=== PATIENT | female | born 1980 | race Two or more races ===

== ENCOUNTER 2024-02-22 07:32 | Emergency (ER) | payer BC, OTHER ==
[~2024-02-22] VITALS: Ht 154.9 cm; Wt 64.2 kg
[2024-02-22 08:10] VITALS: BP 103/64; PULSE 73; RESP 16; TEMP 98.2; O2SAT 99
[2024-02-22 08:29] LABS: Urine Bacteria None Seen /hpf (None Seen)
[2024-02-22] MEDS: ONDANSETRON ODT 4 MG TAB PO ONE (08:30)
[2024-02-22] MEDS: MECLIZINE HCL 25 MG TAB PO ONE (08:30)
[2024-02-22 08:38] LABS: Basophils # (auto) 0 10 ^3/uL (0-0.2); Basophils % (auto) 0.3 % (0.0-2.0); Eosinophils # (auto) 0 10 ^3/uL (0-0.8); Eosinophils % (auto) 0.6 % (0.0-7.0); Hematocrit 35.7 % (36.0-46.0); Hemoglobin 11.9 g/dL (12.2-16.2); Lymphocytes # (auto) 1.2 10 ^3/uL (0.4-5.4); Lymphocytes % (auto) 18.6 % (10.0-50.0); Mean Corpuscular Hemoglobin 29.5 pg (28.0-32.0); Mean Corpuscular Hgb Conc. 33.2 g/dL (32.0-36.0); Mean Corpuscular Volume 88.8 fL (80.0-100.0); Monocytes # (auto) 0.5 10 ^3/uL (0-1.3); Monocytes % (auto) 7.7 % (0.0-12.0); Neutrophils # (auto) 4.7 10 ^3/uL (1.6-8.6); Neutrophils % (auto) 72.8 % (37.0-80.0); Nucleated Red Blood Cells % 0.1 %; Red Blood Cells 4.03 10^6/uL (4.0-5.20); Red Cell Distribution Width 13.2 % (11.8-14.3); White Blood Cell 6.4 10^3/uL (4.4-10.8)
[2024-02-22 08:44] LABS: Chloride 107 mmol/L (98-107); Potassium 4.4 mmol/L (3.5-5.1); Sodium 138 mmol/L (136-145)
[2024-02-22 08:45] LABS: Anion Gap 7 (5-15); Carbon Dioxide 24 mmol/L (20-30)
[2024-02-22 08:46] LABS: Calcium 9.2 mg/dL (8.5-10.1)
[2024-02-22 08:48] LABS: Urine Blood Negative /uL (Negative); Urine Clarity Clear (Clear); Urine Color Light-Yellow (Yellow); Urine Protein, UAD Negative (Negative); Urine Specific Gravity 1.015 (1.001-1.035); Urine Urobilinogen Normal (Negative); Urine WBC 9 /hpf (0 - 5)
[2024-02-22 08:50] LABS: Glucose 95 mg/dL (74-106)
[2024-02-22 08:51] LABS: BUN/Creatinine Ratio 9.5 (10.0-20.0); Blood Urea Nitrogen 6 mg/dL (9-23)
[2024-02-22] MEDS ORDERED: NITR-87 PO (09:02)
[2024-02-22] MEDS ORDERED: MECL1TAB42 PO (09:02)
== END 2024-02-22 09:07 | disposition home or self-care (01) ==
LOC: ER 07:32
DX: R42 Dizziness and giddiness (principal); N30.00 Acute cystitis without hematuria; Z79.899 Other long term (current) drug therapy
CPT/HCPCS: 36415; 70450; 80048; 81001; 81025; 85025; 99284; J8597; Q0162